=== PATIENT | male | born 1985 | race African-American/Black ===

== ENCOUNTER 2021-07-16 18:48 | Emergency (ER) | payer OTHER ==
[~2021-07-16] VITALS: Ht 177.8 cm; Wt 81.7 kg
--- NOTE | ~2021-07-16 | EMS ---
[facility] [address] [place] [address] EMS Patient Care Report Name: AUGUSTO MCFADDEN Room #: REG ANJELICA Logan#: [id number] Admission: 07/16/21 Attend Phys: Discharge: Date of : 83 Report #: [id number] THIS REPORT FOR: //name// Report Transmitted: 07/16/2021 20:46 EMS Care Summary [place], [place]/[facility] Incident [id number] @ 07/16/2021 18:17 Incident Location [address] [place] [id number] Patient AUGUSTO MCFADDEN Male, 35 Years 1985 Patient Address [address] [place] [id number] Patient History None Reported, Patient Allergies Other drug allergy, Patient Medications None Reported, Chief Complaint headache /N/V/body aches Disposition Transported No Lights/[place] Dispatch Reason Sick Person Transported To [facility] Narrative pt found ambulatory toward unit. he is a&o, c/o headache, chills, body aches for 5 days. he states he has been tested multiple times for covid and it has [facility] [address] [place] [address] EMS Patient Care Report Name: AUGUSTO MCFADDEN Room #: REG ANJELICA Logan#: [id number] Admission: 07/16/21 Attend Phys: Discharge: Date of : 83 Report #: [id number] been negative. he is req transport to [facility] for eval. pt seats self on bench, transport w./o change. report to nurse in triage. Initial Vitals @18:37P: 98,R: 18,BP: 140/90,Pain: 6/10,GCS: 15,SpO2: 98,Revised Trauma: 12, Assessments @18:30MENTAL:No Abnormalities,SKIN:No Abnormalities,HEENT:Head/Face: Other,LUNG SOUNDS:General: Nausea,General: Vomiting,ABDOMEN:General: Nausea,General: Vomiting,PELVIS//GI:EXTREMITIES:PULSE:NEURO: Impression Headache Procedures @18:30 ALS Assessment Response: Unchanged Timeline 18:14,Call Received 18:14,Dispatch Notified 18:17,Dispatched 18:18,En Route 18:27,On Scene 18:29,At Patient 18:30,ALS Assessment,Response: Unchanged 18:35,Depart Scene 18:37,BP: 140/90 M,PULSE: 98,RR: 18 R,SPO2: 98 Ox,ETCO2: ,BG: ,PAIN: 6,GCS: 15, 18:45,At Destination 19:02,Call Closed Disclaimer v1.1 Copyright 2021 [employer] This EMS Care Summary contains data elements from the applicable legal record (which may be displayed differently). It is designed to provide pertinent information for the following purposes: continuity of care, clinical quality, and state data reporting. The complete legal record is available to ED staff and administrators of the receiving hospital in [employer]'s Patient Tracker. All data is provided "as is."
[2021-07-16 21:38] LABS: ABSOLUTE NEUTROPHILS 3.9 thou/uL (1.4-8.2); BASOPHILS 0.4 % (0.0-2.0); EOSINOPHILS 0.2 % (0.0-3.0); HEMATOCRIT 47.4 % (42.0-52.0); HEMOGLOBIN 15.7 gm/dL (14.0-18.0); MCH 31.8 pg (26.0-34.0); MCHC 33.1 g/dL (28.0-37.0); MCV 96.3 fL (80.0-100.0); MONOCYTES 8.7 % (1.0-8.0); PLATELET COUNT 214 thou/uL (150-400); POLYS 67.7 % (36.0-66.0); RBC 4.92 mil/uL (4.50-6.00); RDW 12.5 % (10.5-14.5); WBC 5.7 thou/uL (4.0-11.0)
[2021-07-16 21:44] LABS: CALCIUM 9.1 mg/dL (8.5-10.1); POTASSIUM 3.9 mmol/L (3.5-5.1)
[2021-07-16 22:25] VITALS: BP 152/96
== END 2021-07-16 22:27 | disposition home or self-care (01) ==
LOC: ER 18:48
PROVIDERS: Student in an Organized Health Care Education/Training Program
DX: U07.1 COVID-19 (principal); Z98.890 Other specified postprocedural states; Z88.8 Allergy status to other drugs, medicaments and biological substances